=== PATIENT | female | born 1935 | race Two or more races ===

== ENCOUNTER 2018-02-16 17:25 | Emergency (ER) | payer OTHER ==
[~2018-02-16] VITALS: Ht 152.4 cm; Wt 68.0 kg
[~2018-02-16 17:25] MED LIST: GUAIFENESIN-COD10 ML PO; PREDNISONE10 MG; TESSALON PERLE100 M1 PO; THEO-DUR200 MG; VASOTEC10 MG PO
== END 2018-02-16 20:58 | disposition home or self-care (01) ==
LOC: ER 17:25
DX: R22.41 Localized swelling, mass and lump, right lower limb (principal)

== ENCOUNTER 2018-05-06 12:03 | Emergency (ER) | payer OTHER ==
[~2018-05-06] VITALS: Ht 152.4 cm; Wt 68.0 kg
== END 2018-05-06 17:27 | disposition home or self-care (01) ==
LOC: ER 12:03
DX: S82.891A Other fracture of right lower leg, initial encounter for closed fracture (principal); W18.09XA Striking against other object with subsequent fall, initial encounter; Y93.89 Activity, other specified; Y92.89 Other specified places as the place of occurrence of the external cause; Y99.8 Other external cause status

== ENCOUNTER 2018-07-24 04:03 | Inpatient (IN) | payer OTHER ==
[~2018-07-24] VITALS: Ht 162.6 cm; Wt 63.5 kg
[2018-08-03] MEDS ORDERED: BENZONATATE100 MG PO (13:04)
[2018-08-03] MEDS ORDERED: GUAIFENESI100 MG/52 PO (13:04)
[2018-08-03] MEDS ORDERED: MEDROL4 MG PO ×2 (13:07→13:14)
[2018-08-03] MEDS ORDERED: SYMBICORT 16010.2 GM IH (13:11)
== END 2018-08-03 15:06 | disposition home or self-care (01) | DRG 190 ==
LOC: ER 04:03 → SURH 09:30 → SEC-K 09:30 → SURH 11:50 → MEDJ 07-26 12:03
PROC: B246ZZZ Ultrasonography of Right and Left Heart (ICD-10-PCS; principal; 2018-07-24)
PROC: 3E0F7GC Introduction of Other Therapeutic Substance into Respiratory Tract, Via Natural or Artificial Opening (ICD-10-PCS; 2018-07-24)
PROC: 4A033R1 Measurement of Arterial Saturation, Peripheral, Percutaneous Approach (ICD-10-PCS; 2018-07-24)
DX: J44.1 Chronic obstructive pulmonary disease with (acute) exacerbation (principal); J80 Acute respiratory distress syndrome; J45.51 Severe persistent asthma with (acute) exacerbation; J44.0 Chronic obstructive pulmonary disease with (acute) lower respiratory infection; J20.9 Acute bronchitis, unspecified; D72.828 Other elevated white blood cell count; I11.9 Hypertensive heart disease without heart failure; M25.551 Pain in right hip; S70.01XA Contusion of right hip, initial encounter; E11.65 Type 2 diabetes mellitus with hyperglycemia; Z79.52 Long term (current) use of systemic steroids; Z79.4 Long term (current) use of insulin

== ENCOUNTER 2019-01-24 07:30 | Emergency (ER) | payer OTHER ==
[~2019-01-24] VITALS: Ht 152.4 cm; Wt 68.0 kg
[~2019-01-24 07:30] MED LIST changes: +BENZONATATE100 MG PO; +GUAIFENESI100 MG/52 PO; +MEDROL4 MG PO; +SYMBICORT 16010.2 GM IH
== END 2019-01-24 17:24 | disposition home or self-care (01) ==
LOC: ER 07:30
DX: J45.998 Other asthma (principal); B34.9 Viral infection, unspecified

== ENCOUNTER 2019-03-30 08:28 | Inpatient (IN) | payer OTHER ==
[~2019-03-30] VITALS: Ht 152.4 cm; Wt 66.7 kg
[2019-04-06] MEDS ORDERED: Pulmicort 0.5 MG/2 M IH (06:19)
[2019-04-06] MEDS ORDERED: MONTELUKAST SOD10 MG PO (06:19)
[2019-04-06] MEDS ORDERED: FAMOTIDINE20 MG PO (06:20)
[2019-04-06] MEDS ORDERED: ZITHROMAX500 MG PO (06:22)
== END 2019-04-06 10:26 | disposition home or self-care (01) | DRG 190 ==
LOC: ER 08:28 → MEDJ 16:02
PROVIDERS: ADMIT Internal Medicine
PROC: 3E0F7GC Introduction of Other Therapeutic Substance into Respiratory Tract, Via Natural or Artificial Opening (ICD-10-PCS; 2019-03-30)
PROC: 4A033R1 Measurement of Arterial Saturation, Peripheral, Percutaneous Approach (ICD-10-PCS; 2019-03-30)
PROC: BB4BZZZ Ultrasonography of Pleura (ICD-10-PCS; principal; 2019-04-03)
DX: J44.1 Chronic obstructive pulmonary disease with (acute) exacerbation (principal); A41.1 Sepsis due to other specified staphylococcus; J45.41 Moderate persistent asthma with (acute) exacerbation; J90 Pleural effusion, not elsewhere classified; J20.9 Acute bronchitis, unspecified; E11.65 Type 2 diabetes mellitus with hyperglycemia; I11.9 Hypertensive heart disease without heart failure; D72.828 Other elevated white blood cell count; Z79.4 Long term (current) use of insulin; Z88.0 Allergy status to penicillin

== ENCOUNTER 2019-10-04 09:51 | Outpatient (CLI) | payer OTHER ==
[~2019-10-04 09:51] MED LIST changes: +FAMOTIDINE20 MG PO; +MONTELUKAST SOD10 MG PO; +Pulmicort 0.5 MG/2 M IH; +ZITHROMAX500 MG PO
== END 2019-10-04 09:52 | disposition home or self-care (01) ==
LOC: RAD 09:51
DX: M54.5 Low back pain (principal); E78.89 Other lipoprotein metabolism disorders; E03.8 Other specified hypothyroidism; E66.8 Other obesity; J40 Bronchitis, not specified as acute or chronic; J44.9 Chronic obstructive pulmonary disease, unspecified; J70.9 Respiratory conditions due to unspecified external agent; I10 Essential (primary) hypertension

== ENCOUNTER 2020-03-27 20:18 | Emergency (ER) | payer OTHER ==
[~2020-03-27] VITALS: Ht 152.4 cm; Wt 68.0 kg
== END 2020-03-28 09:21 | disposition home or self-care (01) ==
LOC: ER 20:18
DX: J45.998 Other asthma (principal); I10 Essential (primary) hypertension

== ENCOUNTER 2021-03-06 00:30 | Inpatient (IN) | payer OTHER ==
[~2021-03-06] VITALS: Ht 152.4 cm; Wt 68.0 kg
[~2021-03-06 00:30] MED LIST changes: +ADULT ASPIRIN81 MG; +AVAPRO75 MG PO
[2021-03-10] MEDS ORDERED: FAMOTIDINE20 MG PO (07:39)
[2021-03-10] MEDS ORDERED: AVAPRO150 MG PO (07:39)
[2021-03-10] MEDS ORDERED: ISOSORBIDE MONO30 MG PO (07:39)
[2021-03-10] MEDS ORDERED: CLOPIDOGREL BIS75 MG PO (07:39)
[2021-03-10] MEDS ORDERED: ALBUTEROL2.5 MG/3 M IH (07:39)
[2021-03-10] MEDS ORDERED: BUDESONIDE0.5 MG/2 M IH (07:39)
[2021-03-10] MEDS ORDERED: MUCINEX DM ER1 EACH PO (07:39)
== END 2021-03-10 12:46 | disposition home health service (06) | DRG 208 ==
LOC: ER 00:30 → SEC-K 07:51 → MEDI 07:51
PROVIDERS: ADMIT Internal Medicine; ATTEND Internal Medicine
PROC: 0BH17EZ Insertion of Endotracheal Airway into Trachea, Via Natural or Artificial Opening (ICD-10-PCS; principal; 2021-03-06)
PROC: 5A1935Z Respiratory Ventilation, Less than 24 Consecutive Hours (ICD-10-PCS; 2021-03-06)
PROC: 4A12X4Z Monitoring of Cardiac Electrical Activity, External Approach (ICD-10-PCS; 2021-03-06)
DX: J96.01 Acute respiratory failure with hypoxia (principal); J45.51 Severe persistent asthma with (acute) exacerbation; E87.2 Acidosis; Z20.822 Contact with and (suspected) exposure to COVID-19; E11.65 Type 2 diabetes mellitus with hyperglycemia; G30.9 Alzheimer's disease, unspecified; F02.80 Dementia in other diseases classified elsewhere, unspecified severity, without behavioral disturbance, psychotic disturbance, mood disturbance, and anxiety

== ENCOUNTER 2022-01-02 11:31 | Emergency (ER) | payer OTHER ==
[~2022-01-02] VITALS: Ht 152.4 cm; Wt 68.0 kg
[~2022-01-02 11:31] MED LIST changes: +ALBUTEROL2.5 MG/3 M IH; +AVAPRO150 MG PO; +BUDESONIDE0.5 MG/2 M IH; +CLOPIDOGREL BIS75 MG PO; +ISOSORBIDE MONO30 MG PO; +MUCINEX DM ER1 EACH PO
[2022-01-02] MEDS ORDERED: ULTRAM50 MG PO (14:14)
== END 2022-01-02 14:31 | disposition home or self-care (01) ==
LOC: ER 11:31
DX: S42.254A Nondisplaced fracture of greater tuberosity of right humerus, initial encounter for closed fracture (principal); W18.30XA Fall on same level, unspecified, initial encounter; Y93.9 Activity, unspecified; Y92.9 Unspecified place or not applicable; I10 Essential (primary) hypertension; Z88.0 Allergy status to penicillin; J44.9 Chronic obstructive pulmonary disease, unspecified

== ENCOUNTER 2022-01-09 15:35 | Emergency (ER) | payer OTHER ==
[~2022-01-09] VITALS: Ht 152.4 cm; Wt 68.0 kg
[~2022-01-09 15:35] MED LIST changes: +ULTRAM50 MG PO
== END 2022-01-09 21:39 | disposition home or self-care (01) ==
LOC: ER 15:35
DX: K29.60 Other gastritis without bleeding (principal); T40.425A Adverse effect of tramadol, initial encounter; I10 Essential (primary) hypertension; Y92.9 Unspecified place or not applicable; Z88.0 Allergy status to penicillin

== ENCOUNTER 2022-01-19 13:28 | Outpatient (CLI) | payer OTHER | END 2022-01-19 13:51 | disposition home or self-care (01) | LOC: TOM 13:28 | PROVIDERS: ATTEND Orthopaedic Surgery | DX: S42.224A 2-part nondisplaced fracture of surgical neck of right humerus, initial encounter for closed fracture (principal) ==

== ENCOUNTER 2022-10-20 13:23 | Outpatient (CLI) | payer OTHER ==
[2022-11-14] MEDS ORDERED: MEDROLPACK PO (05:11)
== END 2022-10-20 13:25 | disposition home or self-care (01) ==
LOC: NUCLEAR 13:23
PROVIDERS: ATTEND Orthopaedic Surgery
DX: M81.0 Age-related osteoporosis without current pathological fracture (principal)

== ENCOUNTER → 2022-11-14 | Emergency (ER) | payer OTHER ==
[~2022-11-14] VITALS: Ht 157.5 cm; Wt 68.0 kg
[~2022-11-14] MED LIST changes: +MEDROLPACK PO
== END | disposition home or self-care (01) ==
LOC: ER 00:25
DX: J44.1 Chronic obstructive pulmonary disease with (acute) exacerbation (principal); Z88.0 Allergy status to penicillin; I10 Essential (primary) hypertension